=== PATIENT | female | born 1965 | race Two or more races ===

== ENCOUNTER 2019-04-05 16:20 | Emergency (ER) | payer SELFPAY ==
[~2019-04-05] VITALS: Ht 165.1 cm; Wt 65.0 kg
[2019-04-05] MEDS ORDERED: IBUPROFEN 600MG TABLET PO ONE (17:45)
[2019-04-05 18:07] VITALS: BP 138/80
== END 2019-04-05 18:30 | disposition home or self-care (01) ==
LOC: ER 16:20
DX: M54.2 Cervicalgia (principal); Y08.89XA Assault by other specified means, initial encounter; Y93.89 Activity, other specified; Y92.89 Other specified places as the place of occurrence of the external cause; Y99.8 Other external cause status
CPT/HCPCS: 99283